=== PATIENT | female | born 1965 | race Caucasian/White ===

== ENCOUNTER 2019-04-30 12:07 | Emergency (ER) | payer OTHER ==
[~2019-04-30] VITALS: Ht 152.4 cm; Wt 72.6 kg
[2019-04-30 12:23] VITALS: BP_SYST 142
--- NOTE | 2019-04-30 12:31 | NUR ---
Patient to ER bed 7 to gown for evaluation. Side rails up. Report given to Maty QUEEN.
--- NOTE | 2019-04-30 12:40 | NUR ---
Pt AAOx4 ambulated into ED c/o bilateral eye redness, swelling, and thick white discharge; also c/o rash to bilateral arms x 4 days. 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 Pt has since moved and was taking prednisone and gentamicin which caused a worsening reaction. Pt was instructed to stop taking gentamicin. No other injuries/complaints per pt/noted. Will continue to monitor.
--- NOTE | 2019-04-30 12:51 | NUR ---
ER Dr. Molina at bedside examining patient.
[2019-04-30] MEDS ORDERED: DIPHENHYDRAMINE HCL 50 MG CAPSULE PO ONE (13:00)
[2019-04-30] MEDS ORDERED: ALBUTEROL SULFATE 0.083% 2.5 MG/3 ML VIAL.NEB INH ONE (13:00)
[2019-04-30] MEDS ORDERED: methylPREDNISolone SOD SUCC/PF 62.5 MG/ML VIAL IM ONE (13:00)
--- NOTE | 2019-04-30 13:07 | NUR ---
Medication administered. Pt reports burning sensation s/p Solumedrol injection to R arm. Ice pack provided. Will reassess.
--- NOTE | 2019-04-30 13:26 | NUR ---
Respiratory at bedside for breathing tx
[2019-04-30 13:36] VITALS: BP_SYST 136
== END 2019-04-30 13:36 | disposition home or self-care (01) ==
LOC: SED 12:07
DX: T78.40XA Allergy, unspecified, initial encounter (principal); R60.0 Localized edema; X58.XXXA Exposure to other specified factors, initial encounter
CPT/HCPCS: 94640; 96372; 99283; J2930; J7613; Q0163